=== PATIENT | male | born 1995 | race American Indian/Alaskan Native ===

== ENCOUNTER 2019-01-11 19:08 | Emergency (ER) | payer BC ==
[~2019-01-11] VITALS: Ht 193 cm; Wt 143.6 kg
[2019-01-11 19:19] VITALS: BP 159/82
[2019-01-11] MEDS ORDERED: LIDOcaine 1% w/EPI 1:200,000 injection 10mL vial IM ONE (20:30)
[2019-01-11] MEDS ORDERED: TETanus/Pertussis (Acell)/Diphther VAC/PF (Tdap-Adult) 0.5ml syringe IM ONE (20:30)
[2019-01-11] MEDS ORDERED: LIDOcaine 1% W/epiNEPHrine 1:100,000 20ml vial IJ ONE (20:35)
== END 2019-01-11 22:19 | disposition home or self-care (01) ==
LOC: ER 19:09
DX: S61.411A Laceration without foreign body of right hand, initial encounter (principal); W51.XXXA Accidental striking against or bumped into by another person, initial encounter; Y93.61 Activity, american tackle football; Y92.39 Other specified sports and athletic area as the place of occurrence of the external cause; Y99.8 Other external cause status
CPT/HCPCS: 12002; 73130; 90471; 99284